=== PATIENT | female | born 2000 | race Two or more races ===

== ENCOUNTER 2022-11-09 01:09 | Emergency (ER) | payer BC, SELFPAY ==
[2022-11-09 01:10] VITALS: BP 122/97; PULSE 118; RESP 16; TEMP 36.8; O2SAT 99; BMI 26.5
--- NOTE | 2022-11-09 01:11 | PC.NURSE ---
in room talking with patient at this time.
--- NOTE | 2022-11-09 01:13 | XR_ITS ---
PROCEDURE INFORMATION: Exam: XR Right Elbow Exam date and time: 11/09/2022 1:21 AM Age: 22 years old Clinical indication: Pain; Elbow; Right; Additional info: Fall pain TECHNIQUE: Imaging protocol: Radiologic exam of the right elbow. Views: 3 or more views. Total images: 3 COMPARISON: No relevant prior studies available. FINDINGS: Bones/joints: Acute hairline incomplete nondisplaced fracture of the proximal ulna through the olecranon process. No joint dislocation. Joint spaces are appropriate for age. Slight elevation of the anterior and posterior fat pads. Soft tissues: Unremarkable soft tissues. IMPRESSION: Acute hairline incomplete nondisplaced fracture of the olecranon process.
--- NOTE | 2022-11-09 01:14 | HMH.EDFALL ---
Discharge Plan Disposition Patient Disposition: Home, Self-Care Condition: Good Prescriptions Prescriptions: No Action No Known Home Medications Activity Restrictions/Add. Instructions Additional Instructions/Restrictions: Please follow-up with orthopedic surgery in your hometown. Please take Tylenol and ibuprofen as needed for pain. Please keep splint clean dry and intact. Please remain nonweightbearing of the right upper extremity until follow-up with orthopedic surgery.. Clinical Impressions Clinical Impression: Left ankle sprain Closed olecranon fracture Qualifiers: Encounter type: initial encounter Laterality: right Qualified Code(s): S52.021A - Displaced fracture of olecranon process without intraarticular extension of right ulna, initial encounter for closed fracture Discharge ED Provider: Jacobo Tao HPI General Chief Complaint: Fall Stated Complaint: fall Time Seen by Provider: 11/09/22 01:13 Mode of Arrival: Wheelchair Source of Information: Patient Limitations: No Limitations Description of Symptoms (Recalled from ER Triage Doc. by RN): pt states had an agruement with boyfriend and ask him to nail puller, she step out of car and fell. pt c/o lt ankle and rt elbow pain. pt states she has been drinking tonight. History of Present Illness HPI Narrative: 22-year-old female previously healthy presents with right elbow pain and left ankle pain after falling. She reports that she had been drinking and was wearing heels, tripped and fell resulting in this pain. She reports no head trauma. Reports no other symptoms. She is alert oriented and not obviously intoxicated on exam. She reports that she has a known left great toe fracture. Related Data Home Medications Medication Instructions Recorded Confirmed No Known Home Medications 11/09/22 11/09/22 Allergies Allergy/AdvReac Type Severity Reaction Status Date / Time No Known Allergies Allergy Verified 11/09/22 01:13 [facility] Disclaimer: The information contained in this section may have been updated after the patient was seen, as this information can be updated by other users. Social History Smoking Status: Current every day smoker alcohol intake: current current occupational status: other Travel in the last 8 weeks: Inside the [place] ROS Obtained: Yes All systems reviewed & no additional complaints except as documented Physical Exam General General appearance: alert and in no apparent distress Head Head exam: atraumatic and normocephalic Eye Eye exam: Present normal appearance, PERRL and EOMI ENT ENT exam: Present normal oropharynx and normal external ear exam Neck Neck exam: Present normal inspection and full ROM Chest Chest inspection: Present normal inspection and symmetric chest wall rise; Absent tenderness Respiratory Respiratory exam: Present normal lung sounds bilaterally; Absent respiratory distress Cardiovascular Cardiovascular exam: Present regular rate and normal rhythm Abdominal Exam Abdominal exam: Present soft; Absent distention, tenderness or guarding Extremities Exam Extremities exam: Present other (Mild tenderness and swelling of the lateral malleolus of the left ankle. No pain at the base of the fifth metatarsal, no pain at the foreleg. Mild tenderness at the right olecranon with range of motion of the elbow no significant swelling. Extremity exams are otherwise normal.) Back Exam Back exam: Present normal inspection; Absent tenderness Neurological Exam Neurological exam: Present alert and oriented X3; Absent motor sensory deficit Psychiatric Psychiatric exam: Present normal affect and normal mood Skin Skin exam: Present warm, dry and normal color Lymphatic Lymphatic Findings: no adenopathy Medical Decision Making Medical Records Medical records reviewed: Yes I reviewed the patient's medical records. Rehan Inquiry Pt receiving controlled substance: No Rehan was queried for this patient: No Vital Signs: 11/09/22 01:10 11/09/22 01:54 11/09/22 02:00 Temperature 98.2 F Temperature Source Oral Pulse Rate 113 H 100 H Pulse Rate [Right] 118 H Respiratory Rate 16 20 18 Blood Pressure 123/85 125/83 Blood Pressure [Right Arm] 122/97 H Blood Pressure Mean 97 92 Blood Pressure Mean [Right Arm] 105 02 Sat by Pulse Oximetry 99 98 98 Lab Data Lab results reviewed: Yes I reviewed the patient's lab results. Orders (Tests/Meds): ED MEDICATIONS Discontinued Medications Generic Name Dose Route Start Last Admin Trade Name Jalen PRN Reason Stop Dose Admin Ibuprofen 600 mg 11/09/22 01:13 11/09/22 01:23 Ibuprofen 600 Mg Tablet PO 11/09/22 01:14 600 mg ONCE ONE Administration ORDERS Category Date Time Status Ankle XR - Left 2 Views [XR ankle LT 2V] Stat Exams 11/09/22 01:35 Completed Elbow XR right 2 views [XR elbow RT 2V] Stat Exams 11/09/22 03:11 Taken Elbow XR right minimum 3 views [XR elbow RT min 3V] Exams 11/09/22 01:13 Completed Stat Medical Decision Narrative: 22-year-old female previously healthy presents with left ankle pain and right elbow pain after a fall.. History was obtained via conversation with patient. On arrival, patient is afebrile, hemodynamically stable alert, oriented x4, appropriate, GCS 15, moving all extremities spontaneously, pupils equal and reactive to light. Full physical exam performed and significant for extremity findings as above. Differential includes but is not limited to fracture, dislocation, neurovascular/ligamentous injury. Patient was given ibuprofen for symptomatic management. Workup initiated including radiographs of the left ankle, right elbow. On re-evaluation, patient remains afebrile, HD stable. Imaging independently interpreted by me and significant for nondisplaced fracture of the right olecranon without extension of the joint space. No evidence of fracture or dislocation in the left ankle.. See radiology read for full review of final results. Given patient history, exam and workup, patient's presentation most likely represents nondisplaced olecranon fracture that likely will not require surgical intervention.. Patient was splinted by me in a posterior long-arm splint. Patient was instructed to take Tylenol and ibuprofen as needed for pain. Instructed to remain nonweightbearing of the right upper extremity. Given patient is from out of town, patient was instructed to follow-up with orthopedic surgery where she lives. She was given a disc with her images. Post-splint images were unchanged. Patient discharged in stable condition. Return precautions given. Procedures Risk/Benefits of Procedure(s) Were Explained: Yes Orthopedic Splinting/Casting Injury #1: Side: right Upper Extremity Injury Location: elbow Upper Extremity Immobilizer: posterior splint Additional Comments: Posterior long-arm plaster splint placed by me at bedside. I provided definitive fracture care in this case. Post Cast/Splinting Neuro Status: intact and no change Post Cast/Splinting Vasc Status: intact and no change Critical Care Critical Care Time Critical Care Time: No
[2022-11-09] MEDS: IBUPROFEN 600 MG TABLET PO (01:23)
--- NOTE | 2022-11-09 01:30 | PC.NURSE ---
PAtient gone to Xray at this time.
--- NOTE | 2022-11-09 01:35 | XR_ITS ---
PROCEDURE INFORMATION: Exam: XR Left Ankle Exam date and time: 11/09/2022 1:27 AM Age: 22 years old Clinical indication: Pain; Ankle; Left; Additional info: Fall TECHNIQUE: Imaging protocol: Radiologic exam of the left ankle. Views: 1 or 2 views. Total images: 3 COMPARISON: No relevant prior studies available. FINDINGS: Bones/joints: No acute fracture or joint dislocation. Hindfoot anatomy is intact. Ankle mortise is maintained. No degenerative arthropathy. Small joint effusion. On the lateral view only, sclerotic bone density within the talus versus corticated ossicle at the lateral malleolus. No concerning bone lesions or calcifications. Soft tissues: Lateral soft tissue swelling. IMPRESSION: 1. No acute osseous abnormality. 2. Small joint effusion. 3. Lateral soft tissue swelling.
--- NOTE | 2022-11-09 01:39 | PC.NURSE ---
patient back in room at this time.
[2022-11-09 01:54] VITALS: BP 123/85; PULSE 113; RESP 20; O2SAT 98
[2022-11-09 02:00] VITALS: BP 125/83; PULSE 100; RESP 18; O2SAT 98
--- NOTE | 2022-11-09 03:11 | XR_ITS ---
PROCEDURE INFORMATION: Exam: XR Right Elbow Exam date and time: 11/09/2022 3:21 AM Age: 22 years old Clinical indication: Pain; Elbow; Right; Additional info: Post splint TECHNIQUE: Imaging protocol: Radiologic exam of the right elbow. Views: 1 or 2 views. COMPARISON: CR XR ELBOW RT MIN 3V 11/09/2022 1:21 AM FINDINGS: Tubes, catheters and devices: Interval placement of a splint. Bones/joints: The nondisplaced olecranon fracture is not well seen. No other fracture is present. The joints are well aligned. Soft tissues: Normal. IMPRESSION: 1. The nondisplaced olecranon fracture is not well seen. 2. No other fracture is present. The joints are well aligned. 3. Interval placement of a splint.
[2022-11-09 03:45] VITALS: BP 125/80; PULSE 88; RESP 16; TEMP 36.8; O2SAT 100
== END 2022-11-09 03:46 | disposition home or self-care (01) ==
PROVIDERS: Emergency Provider Emergency Medicine
DX: S52.021A Displaced fracture of olecranon process without intraarticular extension of right ulna, initial encounter for closed fracture (principal); F17.200 Nicotine dependence, unspecified, uncomplicated; W01.0XXA Fall on same level from slipping, tripping and stumbling without subsequent striking against object, initial encounter
CPT/HCPCS: 73070; 73080; 73600; 99284